=== PATIENT | male | born 2000 | race Caucasian/White ===

== ENCOUNTER 2018-09-13 17:30 | Emergency (ER) | payer BC ==
[2018-09-13] MEDS ORDERED: NS(*) 0.9% 1000 ML BAG 1,000 ML IV ONE (17:49)
--- NOTE | 2018-09-13 17:49 | ER Report ---
History and Physical Time Seen By MD: 17:46 Hx. of Stated Complaint: presents via EMS, states "I took some LSD and went on a run, I feel really out of it". A&O x 2. HPI/ROS CHIEF COMPLAINT: Anxiety HISTORY OF PRESENT ILLNESS: 17-year-old male patient presents to emergency room with complaint of anxiety and altered mental status. Patient states that he took some LSD this afternoon and then went for a run. He states that he never taken pills deep previously. He states he is under a lot of pressure with some difficulties with his home life. He states he is not having any suicidal, homicidal or ideas of self-harm. Patient states that he has been under a lot of stress. He denies any fevers, chills, nausea, vomiting or diarrhea. Patient denies having any pain. REVIEW OF SYSTEMS: Respiratory: No cough, no dyspnea. Cardiovascular: No chest pain, no palpitations. Gastrointestinal: No vomiting, no abdominal pain. Musculoskeletal: No back pain. Past Medical/Surgical History Patient is unable to give a past medical history at this time. Unable To Obtain Past Medical: Unable to Obtain/Update Reviewed Nurses Notes: Yes Constitutional Vital Sign - Last 24 Hours 09/13/18 09/13/18 09/13/18 17:36 18:00 18:30 Temp 99.3 Pulse 100 92 88 Resp 20 10 5 B/P (MAP) 122/81 Pulse Ox 91 92 94 O2 Delivery Room Air Physical Exam General Appearance: The patient is alert, has no immediate need for airway protection and no current signs of toxicity. Respiratory: Chest is non tender, lungs are clear to auscultation. Cardiac: regular rate and rhythm Gastrointestinal: Abdomen is soft and non tender, no masses, bowel sounds normal. Musculoskeletal: Neck: Neck is supple and non tender. Extremities have full range of motion and are non tender. Skin: No rashes or lesions. Psych: Patient is tearful during interview, he is able to maintain eye contact but does so briefly. Rate of speech is rapid. DIFFERENTIAL DIAGNOSIS: After history and physical exam differential diagnosis was considered for adverse drug reaction, anxiety. Medical Decision Making Data Points Result Diagram: 09/13/18 1745 09/13/18 1745 Laboratory Hematology Test 09/13/18 17:45 09/13/18 18:53 Red Blood Count 5.18 M/uL (4.00-5.60) Mean Corpuscular Volume 91.0 fL (80.0-96.0) Mean Corpuscular Hemoglobin 31.6 pg (26.0-33.0) Mean Corpuscular Hemoglobin Concent 34.7 g/dL (32.0-36.0) Red Cell Distribution Width 13.3 % (11.5-14.5) Mean Platelet Volume 8.2 fL (7.2-11.1) Neutrophils (%) (Auto) 84.3 % (39.4-72.5) Lymphocytes (%) (Auto) 12.1 % (17.6-49.6) Monocytes (%) (Auto) 3.2 % (4.1-12.4) Eosinophils (%) (Auto) 0.1 % (0.4-6.7) Basophils (%) (Auto) 0.3 % (0.3-1.4) Nucleated RBC Relative Count (auto) 0.0 /100WBC Neutrophils # (Auto) 12.3 K/uL (2.0-7.4) Lymphocytes # (Auto) 1.8 K/uL (1.3-3.6) Monocytes # (Auto) 0.5 K/uL (0.3-1.0) Eosinophils # (Auto) 0.0 K/uL (0.0-0.5) Basophils # (Auto) 0.1 K/uL (0.0-0.1) Nucleated RBC Absolute Count (auto) 0.00 K/uL Sodium Level 140 mmol/L (137-145) Potassium Level 3.7 mmol/L (3.5-5.0) Chloride Level 102 mmol/L (98-107) Carbon Dioxide Level 22 mmol/L (22-30) Blood Urea Nitrogen 21 mg/dl (9-21) Creatinine 1.10 mg/dl (0.66-1.25) Glomerular Filtration Rate Calc > 60.0 Random Glucose 201 mg/dl (75-110) Calcium Level 10.1 mg/dl (8.4-10.2) Magnesium Level 1.8 mg/dl (1.7-2.2) Total Bilirubin 1.2 mg/dl (0.2-1.3) Aspartate Amino Transf (AST/SGOT) 47 U/L (0-35) Alanine Aminotransferase (ALT/SGPT) 51 U/L (0-56) Alkaline Phosphatase 111 U/L (0-126) Total Protein 7.8 g/dl (6.3-8.2) Albumin 4.9 g/dl (3.5-5.0) Salicylates Level < 10 mg/L Salicylate Last Dose Date unk Acetaminophen Level < 10 ug/ml Urine Color Yellow Urine Clarity Clear Urine pH 7.0 pH (4.8-9.5) Urine Specific Siren 1.011 Urine Protein Negative mg/dL (NEGATIVE) Urine Glucose (UA) Negative mg/dL (NEGATIVE) Urine Ketones Negative mg/dL (NEGATIVE) Urine Blood Negative (NEGATIVE) Urine Nitrite Negative (NEGATIVE) Urine Bilirubin Negative (NEGATIVE) Urine Urobilinogen Negative mg/dL (0.2-1.9) Urine Leukocyte Esterase Negative (NEGATIVE) Urine RBC None /HPF (0-2/HPF) Urine WBC None /HPF (0-5/HPF) Urine Squamous Epithelial Cells None /LPF (</=FEW) Urine Bacteria Negative /HPF (NONE-FEW) Urine Mucus None /HPF (NONE-FEW) Urine Opiates Screen Negative Urine Barbiturates Screen Negative Ur Tricyclic Antidepressants Screen Negative Urine Phencyclidine Screen Negative Urine Amphetamines Screen Negative Urine Benzodiazepines Screen Negative Urine Cocaine Screen Negative Urine Cannabinoids Screen Negative Chemistry Test 09/13/18 17:45 09/13/18 18:53 White Blood Count 14.6 k/uL (4.5-11.0) Red Blood Count 5.18 M/uL (4.00-5.60) Hemoglobin 16.4 g/dL (14.0-18.0) Hematocrit 47.1 % (42.0-52.0) Mean Corpuscular Volume 91.0 fL (80.0-96.0) Mean Corpuscular Hemoglobin 31.6 pg (26.0-33.0) Mean Corpuscular Hemoglobin Concent 34.7 g/dL (32.0-36.0) Red Cell Distribution Width 13.3 % (11.5-14.5) Platelet Count 288 K/uL (150-450) Mean Platelet Volume 8.2 fL (7.2-11.1) Neutrophils (%) (Auto) 84.3 % (39.4-72.5) Lymphocytes (%) (Auto) 12.1 % (17.6-49.6) Monocytes (%) (Auto) 3.2 % (4.1-12.4) Eosinophils (%) (Auto) 0.1 % (0.4-6.7) Basophils (%) (Auto) 0.3 % (0.3-1.4) Nucleated RBC Relative Count (auto) 0.0 /100WBC Neutrophils # (Auto) 12.3 K/uL (2.0-7.4) Lymphocytes # (Auto) 1.8 K/uL (1.3-3.6) Monocytes # (Auto) 0.5 K/uL (0.3-1.0) Eosinophils # (Auto) 0.0 K/uL (0.0-0.5) Basophils # (Auto) 0.1 K/uL (0.0-0.1) Nucleated RBC Absolute Count (auto) 0.00 K/uL Glomerular Filtration Rate Calc > 60.0 Calcium Level 10.1 mg/dl (8.4-10.2) Magnesium Level 1.8 mg/dl (1.7-2.2) Total Bilirubin 1.2 mg/dl (0.2-1.3) Aspartate Amino Transf (AST/SGOT) 47 U/L (0-35) Alanine Aminotransferase (ALT/SGPT) 51 U/L (0-56) Alkaline Phosphatase 111 U/L (0-126) Total Protein 7.8 g/dl (6.3-8.2) Albumin 4.9 g/dl (3.5-5.0) Salicylates Level < 10 mg/L Salicylate Last Dose Date unk Acetaminophen Level < 10 ug/ml Urine Color Yellow Urine Clarity Clear Urine pH 7.0 pH (4.8-9.5) Urine Specific Siren 1.011 Urine Protein Negative mg/dL (NEGATIVE) Urine Glucose (UA) Negative mg/dL (NEGATIVE) Urine Ketones Negative mg/dL (NEGATIVE) Urine Blood Negative (NEGATIVE) Urine Nitrite Negative (NEGATIVE) Urine Bilirubin Negative (NEGATIVE) Urine Urobilinogen Negative mg/dL (0.2-1.9) Urine Leukocyte Esterase Negative (NEGATIVE) Urine RBC None /HPF (0-2/HPF) Urine WBC None /HPF (0-5/HPF) Urine Squamous Epithelial Cells None /LPF (</=FEW) Urine Bacteria Negative /HPF (NONE-FEW) Urine Mucus None /HPF (NONE-FEW) Urine Opiates Screen Negative Urine Barbiturates Screen Negative Ur Tricyclic Antidepressants Screen Negative Urine Phencyclidine Screen Negative Urine Amphetamines Screen Negative Urine Benzodiazepines Screen Negative Urine Cocaine Screen Negative Urine Cannabinoids Screen Negative Toxicology Test 09/13/18 17:45 09/13/18 18:53 Salicylates Level < 10 mg/L Salicylate Last Dose Date unk Acetaminophen Level < 10 ug/ml Urine Opiates Screen Negative Urine Barbiturates Screen Negative Ur Tricyclic Antidepressants Screen Negative Urine Phencyclidine Screen Negative Urine Amphetamines Screen Negative Urine Benzodiazepines Screen Negative Urine Cocaine Screen Negative Urine Cannabinoids Screen Negative Urinalysis Test 09/13/18 18:53 Urine Color Yellow Urine Clarity Clear Urine pH 7.0 pH (4.8-9.5) Urine Specific Siren 1.011 Urine Protein Negative mg/dL (NEGATIVE) Urine Glucose (UA) Negative mg/dL (NEGATIVE) Urine Ketones Negative mg/dL (NEGATIVE) Urine Blood Negative (NEGATIVE) Urine Nitrite Negative (NEGATIVE) Urine Bilirubin Negative (NEGATIVE) Urine Urobilinogen Negative mg/dL (0.2-1.9) Urine Leukocyte Esterase Negative (NEGATIVE) Urine RBC None /HPF (0-2/HPF) Urine WBC None /HPF (0-5/HPF) Urine Squamous Epithelial Cells None /LPF (</=FEW) Urine Bacteria Negative /HPF (NONE-FEW) Urine Mucus None /HPF (NONE-FEW) ED Course/Re-evaluation ED Course Patient was admitted and examined, history and physical were obtained. Differential diagnoses were considered. On examination lungs are clear, heart is regular, abdomen is soft nontender. Lab work for a behavioral health admission were done. Lab results were unremarkable, the drug screen was also negative. I discussed the findings with the patient. We discussed options. Patient states that he would like to go home. Patient has denied having any suicidal ideation, homicidal ideation or any ideas of self-harm. At this time I believe he is safe to go home. We will go ahead and discharge him at this time. He is return to emergency room if condition worsens. He is to avoid any illicit drug use. Patient verbalized understanding and agreement with plan. Decision to Disposition Date: Sep 13, 2018 Decision to Disposition Time: 19:45 Depart Departure Latest Vital Signs Vital Signs Date Time Temp Pulse Resp B/P (MAP) Pulse Ox O2 Delivery O2 Flow Rate FiO2 09/13/18 18:30 88 5 94 09/13/18 17:36 99.3 122/81 Room Air Impression: Primary Impression: Adverse drug reaction Condition: Improved Disposition: HOME OR SELF-CARE Patient Instructions: GENERAL ER DISCHARGE INSTRUCTIONS Additional Instructions: Increase fluid intake. Get plenty of rest. Follow up with your primary care provider in the next week. Avoid using any illicit drugs. Return to the ER if condition worsens. Problem Qualifiers Primary Impression: Adverse drug reaction Encounter type: initial encounter Qualified Codes: T50.905A - Adverse effect of unspecified drugs, medicaments and biological substances, initial encounter GANGA BENTON Sep 13, 2018 17:48
[2018-09-13 18:40] LABS: PLATELET COUNT, AUTOMATED 288 K/uL (150-450)
[2018-09-13 18:52] VITALS: BP 123/69
== END 2018-09-13 19:55 | disposition home or self-care (01) ==
LOC: ER 17:54
DX: T50.905A Adverse effect of unspecified drugs, medicaments and biological substances, initial encounter (principal)
CPT/HCPCS: 80305; 80329; 81001; 82040; 82247; 82310; 82374; 82435; 82565; 82947; 83735; 84075; 84132; 84155; 84295; 84443; 84450; 84460; 84520; 85025; 99283

== ENCOUNTER → 2018-09-13 | Outpatient (CLI) | payer BC | LOC: AMB 17:15 | PROVIDERS: ATTEND Nurse Practitioner | DX: R44.0 Auditory hallucinations (principal); R44.1 Visual hallucinations; R41.82 Altered mental status, unspecified; R50.9 Fever, unspecified; F16.90 Hallucinogen use, unspecified, uncomplicated | CPT/HCPCS: A0425; A0427 ==